=== PATIENT | male | born 2000 | race Two or more races ===

== ENCOUNTER 2021-11-15 09:55 | Emergency (ER) | payer MEDICAID, OTHER ==
[~2021-11-15] VITALS: Ht 167.6 cm; Wt 63.6 kg
[2021-11-15 10:19] VITALS: BP 133/90
[2021-11-15] MEDS ORDERED: cefTRIAXone SOD 1,000 MG VL IM ONE (10:45)
[2021-11-15] MEDS ORDERED: methylPREDNISolone SOD SUCC 125 MG/2 ML VL IM ONE (10:45)
[2021-11-15] MEDS ORDERED: LIDO2SOL23 MT (11:35)
[2021-11-15] MEDS ORDERED: PENI500T2 PO (11:35)
== END 2021-11-15 11:40 | disposition home or self-care (01) ==
LOC: ER 09:55
DX: J03.00 Acute streptococcal tonsillitis, unspecified (principal); Z79.2 Long term (current) use of antibiotics; Z79.899 Other long term (current) drug therapy
CPT/HCPCS: 87880; 96372; 99284; J0696; J2930

== ENCOUNTER 2023-07-26 10:13 | Emergency (ER) | payer MEDICAID, OTHER ==
[~2023-07-26] VITALS: Ht 165.1 cm; Wt 66.9 kg
[~2023-07-26 10:13] MED LIST: LIDO2SOL26 MT; PENI500T2 PO
[2023-07-26 10:38] VITALS: BP 138/92; PULSE 94; RESP 16; TEMP 97.5; O2SAT 96
[2023-07-26] MEDS ORDERED: AUG875T PO (10:59)
[2023-07-26] MEDS ORDERED: CIPR1SUS8 OT (10:59)
[2023-07-26] MEDS ORDERED: ERY05OO OP (10:59)
[2023-07-26] MEDS: TETANUS-DIPTH-ACEL PERTUSSIS 0.5ML SYR Tdap IM ONE (11:02)
[2023-07-26] MEDS: cefTRIAXone SOD 1,000 MG VL IM ONE (11:02)
== END 2023-07-26 10:59 | disposition home or self-care (01) ==
LOC: ER 10:13
DX: H11.31 Conjunctival hemorrhage, right eye (principal); H66.92 Otitis media, unspecified, left ear
CPT/HCPCS: 90471; 90715; 96372; 99284; J0696